=== PATIENT | male | born 1965 | race African-American/Black ===

== ENCOUNTER → 2023-06-27 | Emergency (ER) | payer SELFPAY ==
[~2023-06-27] MED LIST: COLCHICINE 0.6 MG TAB ONE; INDOMETHACIN 25 MG CAP PO ONE
--- NOTE | 2023-06-27 10:31 | ER ---
Nurse's Notes [facility] Name: John Brownlee Age: 58 yrs Sex: Male : 1965 Arrival Date: 06/27/2023 Time: 10:11 Bed 19 Private MD: Diagnosis: Gout right wrist Presentation: 06/26 10:23 Chief complaint: Patient states: right hand pain and swelling, hx of arthritis and gout iw , pain started yesterday. Coronavirus screen: At this time, the client does not indicate any symptoms associated with coronavirus-19. Ebola Screen: Patient negative for fever greater than or equal to 101.5 degrees Fahrenheit, and additional compatible Ebola Virus Disease symptoms Patient denies exposure to infectious person. Patient denies travel to an Ebola-affected area in the 21 days before illness onset. No symptoms or risks identified at this time. Initial Sepsis Screen: Does the patient meet any 2 criteria? No. Patient's initial sepsis screen is negative. Does the patient have a suspected source of infection? No. Patient's initial sepsis screen is negative. Risk Assessment: Do you want to hurt yourself or someone else? Patient reports no desire to harm self or others. Onset of symptoms was June 26, 2023. 10:23 Method Of Arrival: Ambulatory iw 10:23 Acuity: TERESO 3 iw Historical: - Allergies: 10:24 No Known Allergies; iw - Home Meds: 10:24 None [Active]; iw - PMHx: 10:24 Arthritis; Gout; iw - PSHx: 10:24 None; iw - Immunization history:: Adult Immunizations not up to date. - Social history:: Smoking status: Patient reports the use of cigarette tobacco products, smokes one-half pack cigarettes per day. Screenin:35 [facility] ED Fall Risk Assessment (Adult) History of falling in the last 3 months, cp4 including since admission No falls in past 3 months (0 pts). [facility] ED Fall Risk Assessment (Adult) History of falling in the last 3 months, including since admission No falls in past 3 months (0 pts) Confusion or Disorientation No (0 pts) Intoxicated or Sedated No (0 pts) Impaired Gait No (0 pts) Mobility Assist Device Used No (0 pt) Altered Elimination No (0 pt) Score/Fall Risk Level 0 - 2 = Low Risk Oriented to surroundings, Maintained a safe environment, Assessed \T\ reinforced patient's understanding of fall precautions, Hourly rounding (assess needs \T\ fall precautionary measures) done. Abuse screen: Denies threats or abuse. Nutritional screening: No deficits noted. Tuberculosis screening: No symptoms or risk factors identified. Assessment: 10:35 General: Appears in no apparent distress. Behavior is calm, cooperative, appropriate cp4 for age. Pain: Complains of pain in right hand. Musculoskeletal: No deficits noted. Reports pain in right hand. 11:11 Reassessment: Pending discharge. Waiting on medication from pharmacy. cp4 Vital Signs: 10:23 BP 170 / 104; Pulse 83; Resp 16; Temp 98.6; Pulse Ox 100% on R/A; Weight 111.13 kg; iw Height 5 ft. 10 in. ; Pain 10/10; 11:38 BP 164 / 99; Pulse 84; Resp 18; Pulse Ox 100% ; cp4 10:23 Body Mass Index 35.15 (111.13 kg, 177.8 cm) iw 10:23 Pain Scale: Adult iw ED Course: 10:13 Patient arrived in ED. rg4 10:17 Lauri Vogt DO is Attending Physician. ms3 10:24 Triage completed. iw 10:24 Arm band placed on. iw 10:30 Jerome Enriquez DO is Referral Physician. ms3 10:35 Sabina Marcelo is Primary Nurse. cp4 10:35 Bed in low position. Call light in reach. Side rails up X 1. Provided Education on: cp4 arthritis. 10:35 No provider procedures requiring assistance completed. Patient did not have IV access cp4 during this emergency room visit. Administered Medications: 11:12 Drug: colchicine 0.6 mg 1.2 mg PO once Route: PO; cp4 11:37 Follow up: Response: No adverse reaction cp4 11:37 Drug: Indomethacin PO 50 mg PO once Route: PO; cp4 11:37 Follow up: Response: No adverse reaction cp4 Medication: 10:35 VIS not applicable for this client. cp4 Outcome: 10:31 Discharge ordered by . ms3 11:38 Discharged to home ambulatory, cp4 11:38 Condition: stable 11:38 Discharge instructions given to patient, Instructed on discharge instructions, follow up and referral plans. medication usage, Demonstrated understanding of instructions, follow-up care, medications, Prescriptions given X 2, 11:39 Patient left the ED. cp4 Signatures: Cyndie Mullins RN RN Maribell Whitley rg4 Lauri Vogt DO DO ms3 Sabina Marcelo cp4
--- NOTE | 2023-06-27 10:31 | EDPHYS ---
Physician Documentation [facility] Name: John Brownlee Age: 58 yrs Sex: Male : 1965 Arrival Date: 06/27/2023 Time: 10:11 Bed 19 Private MD: ED Physician Lauri Vogt HPI: 06/26 10:33 This 58 yrs old Black Male presents to ER via Ambulatory with complaints of Hand ms3 Swelling, Hand Pain. 10:33 58-year-old male with past medical history of multijoint arthritis and gout presents to [facility] the emergency department for right wrist pain that began yesterday. Patient states he has had gout in his right wrist previously. Patient states pain is 10/10. Patient denies any alleviating or inciting factors. Patient states he is not currently on medication for gout.. Historical: - Allergies: 10:24 No Known Allergies; iw - Home Meds: 10:24 None [Active]; iw - PMHx: 10:24 Arthritis; Gout; iw - PSHx: 10:24 None; iw - Immunization history:: Adult Immunizations not up to date. - Social history:: Smoking status: Patient reports the use of cigarette tobacco products, smokes one-half pack cigarettes per day. ROS: 10:33 Constitutional: Negative for fever, and chills. Neck: Negative for injury, pain, and ms3 swelling, Cardiovascular: Negative for chest pain, and palpitations. Respiratory: Negative for shortness of breath, cough, wheezing, and pleuritic chest pain, Abdomen/GI: Negative for abdominal pain, nausea, vomiting, diarrhea, and constipation, 10:33 MS/extremity: Positive for Right wrist redness, pain, swelling, Exam: 10:33 Constitutional: This is a well developed, well nourished patient who is awake, alert, ms3 and in no acute distress. Head/Face: Normocephalic, atraumatic. Chest/axilla: Normal chest wall appearance and motion. Nontender with no deformity. Cardiovascular: Regular rate and rhythm with a normal S1 and S2. No gallops, murmurs, or rubs. Normal PMI, no JVD. No pulse deficits. Respiratory: Lungs have equal breath sounds bilaterally, clear to auscultation and percussion. No rales, rhonchi or wheezes noted. No increased work of breathing, no retractions or nasal flaring. Abdomen/GI: Soft, non-tender, with normal bowel sounds. No distension or tympany. No guarding or rebound. No evidence of tenderness throughout. 10:33 Musculoskeletal/extremity: Extremities: noted in the Right wrist: pain, swelling, tenderness, Vital Signs: 10:23 BP 170 / 104; Pulse 83; Resp 16; Temp 98.6; Pulse Ox 100% on R/A; Weight 111.13 kg; iw Height 5 ft. 10 in. ; Pain 10/10; 11:38 BP 164 / 99; Pulse 84; Resp 18; Pulse Ox 100% ; cp4 10:23 Body Mass Index 35.15 (111.13 kg, 177.8 cm) iw 10:23 Pain Scale: Adult iw MDM: 10:29 Patient medically screened. ms3 10:33 Differential diagnosis: Gout versus arthritis. Data reviewed: vital signs, nurses ms3 notes, and as a result, I will discharge patient. I considered the following discharge prescriptions or medication management in the emergency department Medications were administered in the Emergency Department. See MAR. Care significantly affected by the following chronic conditions: Gout. Counseling: I had a detailed discussion with the patient and/or guardian regarding the historical points, exam findings, and any diagnostic results supporting the discharge/admit diagnosis, the need for outpatient follow up, to return to the emergency department if symptoms worsen or persist or if there are any questions or concerns that arise at home. Special discussion: I discussed with the patient/guardian in detail that at this point there is no indication for admission to the hospital. It is understood, however, that if the symptoms persist or worsen the patient needs to return immediately for re-evaluation. ED course: Patient states symptoms are similar to previous gout flare in right wrist. Patient given colchicine and indomethacin in the emergency department. Patient to follow-up with Dr. Enriquez in 2 to 3 days. Patient understands and agrees with plan. All questions were answered. Prescription given for indomethacin and colchicine. Return precautions discussed include fevers, chills, worsening symptoms, or any other concerns. 06/26 10:42 Order name: Wrist Splint; Complete Time: 11:12 ms3 Administered Medications: 11:12 Drug: colchicine 0.6 mg 1.2 mg PO once Route: PO; cp4 11:37 Follow up: Response: No adverse reaction cp4 11:37 Drug: Indomethacin PO 50 mg PO once Route: PO; cp4 11:37 Follow up: Response: No adverse reaction cp4 Disposition Summary: 06/27/23 10:31 Discharge Ordered Notes: Location: Home ms3 Condition: Stable ms3 Diagnosis - Gout right wrist ms3 Followup: ms3 - With: Jerome Enriquez DO - When: 2 - 3 days - Reason: Recheck today's complaints Discharge Instructions: - Discharge Summary Sheet ms3 - Gout, [id number] ms3 Forms: - Medication Reconciliation Form ms3 - Thank You Letter ms3 - Antibiotic Education ms3 - Prescription Opioid Use ms3 - Patient Portal Instructions ms3 - Leadership Thank You Letter ms3 Prescriptions: - colchicine 0.6 mg Oral tablet - take 1 tablet ORAL route daily; 20 tablet; Refills: 0, Product Selection ms3 Permitted - indomethacin 50 mg Oral capsule - take 1 capsule ORAL route 4 times per day administer with food or milk; 20 ms3 capsule; Refills: 0, Product Selection Permitted Signatures: Cyndie Mullins RN RN iw Lauri Vogt DO DO ms3 Sabina Marcelo cp4
[2023-06-27 12:05] VITALS: BP 164/99; TEMP 98.6; O2SAT 100
== END ==
LOC: ER 10:11
DX: M10.9 Gout, unspecified (principal)
CPT/HCPCS: 99283

== ENCOUNTER 2025-01-25 11:11 | Emergency (ER) | payer OTHER, SELFPAY ==
--- OUTSIDE RECORDS SUMMARY | 2025-01-25 11:15 | XMS REPORT | Continuity of Care Document ---
Author Name Unknown Address [address] [facility] [address] [place] [address] [facility] Address [address] [facility] [address] [place] [address] Care Team Providers Care Lining Inserter Name Role Phone Pcp, Patient Does Not Have A Primary Care Physic jah Doctor Unassigned, [place] Attending Clinician U CLAYTON Scott Attending Clinician Unavailable Clayton Godinez MD Attending Clinician [phone] CAROLINE RUTHERFORD Attending Clinician Unavailable Caroline Watkins Attending Clinician [phone] MANJU FINNEY Attending Clinician Unavailable Manju Finney NP Attending Clinician [phone] Rebecca Mo Attending Clinician [phone] Kim Aiken Attending Clinician [phone] MANJU FINNEY Admitting Clinician Unavailable Payers Payer Name Policy Type Policy Number Effective Date Expirati on Date Source Problems Condition Name Condition Details Condition Category Status Onset Date Resolution Date Last Treatment Date Treating Clinician Comments Source Chest pain Chest pain Disease Active 01-04:00: 00 [facility] No known active problems No known active problems Disease [facility] Allergies, Adverse Reactions, Alerts Allergy Name Allergy Type Status Severity Reaction(s) Onset Date Inactive Date Treating Clinician Comments Source NO KNOWN ALLERGIE S Drug Class Active [facility] Social History Social Habit Start Date Stop Date Quantity Comments Source Exposure to SARS-CoV-2 (event) 2022-03-26 00:00:00 2022-04-05 13:37:00 Not sure [facility] Sex Assigned At 1965 00:00:00 1965 00:00:00 [facility] Smoking Status Start Date Stop Date Source Tobacco smoking consumption unknown [facility] Medications Ordered Medication Name Filled Medication Name Start Date Stop Date Current Medication? Ordering Clinician Indication Dosage Frequency Signature (SIG) Comments Components Source ketorolac (TORADOL) injection 30 mg 2021-04 21:15: 00 04-05 20:47 :00 No 30mg 30 mg, Intramuscu lar, ONCE, 1 dose, On Tue04/05/22 at 1515, MALIA [facility] predniSONE 20 mg tablet 2021-04 00:00: 00 Yes [id number] 60mg Take 3 tablets by mouth in the morning. [facility] colchicine 0.6 mg tablet 2021-04 00:00: 00 Yes [id number] .6mg Take 1 tablet by mouth in the morning. [facility] traMADoL 50 mg tablet 2021-04 00:00: 00 Yes [id number] 50mg Take 1 tablet by mouth every 6 (six) hours as needed for Pain (scale 4-6). Indication s: acute pain [facility] methocarbam oL (ROBAXIN) tablet 500 mg 2021-04 15:45: 00 03-01 14:59 :00 No 500mg 500 mg, Oral, ONCE, 1 dose, On Tue03/01/22 at 0945, Routine [facility] ketorolac (TORADOL) injection 30 mg 2021-04 15:00: 00 03-01 14:59 :00 No 30mg 30 mg, Intramuscu lar, ONCE, 1 dose, On 03/01/22 at 0900, MALIA [facility] cyclobenzap rine 10 mg tablet 2021-04 00:00: 00 Yes [id number] 10mg Take 1 tablet by mouth 3 (three) times daily as needed for Muscle Spasms. [facility] cyclobenzap rine (FLEXERIL) tablet 10 mg 2021-04 15:30: 00 02-20 14:36 :00 No 10mg 10 mg, Oral, ONCE, 1 dose, On 02/20/22 at 0930, Routine [facility] ibuprofen (IBU) tablet 800 mg 2021-04 14:45: 00 02-20 14:36 :00 No 800mg 800 mg, Oral, ONCE, 1 dose, On 02/20/22 at 0845, MALIA [facility] ibuprofen 800 mg tablet 2021-04 00:00: 00 Yes [id number] 800mg Take 1 tablet by mouth every 8 (eight) hours as needed for Pain (scale 1-3), Pain (scale 4-6) or Alternate with [place] for pain scale 1-3. [facility] cyclobenzap rine 10 mg tablet 2021-04 00:00: 00 03-01 00:00 :00 No [id number] 10mg Take 1 tablet by mouth 3 (three) times daily as needed for Muscle Spasms. [facility] nitroglycer in (NITROSTAT) sublingual tablet 0.4 mg 01-05 01:12: 34 Yes .4mg 0.4 mg, Sublingual , Q5MIN PRN, Starting 01/05/20 at 2011, Until Discontinu ed, Routine, Chest pain [facility] ketorolac (TORADOL) injection 60 mg 10-31 17:00: 00 10-31 16:24 :00 No 60mg 60 mg, Intramuscu lar, ONCE, 1 dose, Guillermina 11/01/19 at 1200, MALIA
Fa culty member approving Restricted medication : KIM CANTU [facility] naproxen (NAPROSYN) 500 mg tablet 10-31 00:00: 02-20 00:00 :00 No [id number] 500mg Take 1 tablet by mouth 2 (two) times daily with meals. [facility] metaxalone (SKELAXIN) 800 mg tablet 10-31 00:00: 00 02-20 00:00 :00 No [id number] 800mg Take 1 tablet by mouth 3 (three) times daily as needed for Pain (muscle spasm). [facility] methylPREDN ISolone (MEDROL, NELLY,) 4 mg tablets 09-14 00:00: 00 02-20 00:00 :00 No [id number] Take by mouth SEE-INSTRU CTIONS. follow package directions [facility] naproxen sodium (ANAPROX DS) 550 mg tablet 09-14 00:00: 10-31 00:00 :00 No [id number] 550mg Take 1 tablet by mouth 2 (two) times daily with meals. [facility] predniSONE (DELTASONE) 20 mg tablet 12-08 00:00: 02-20 00:00 :00 No Take 3 tablets po QD x2 days, then 2 QD x 2 days, then 1 QD x 2 days, then 1/2 QD x 2 days [facility] Hydrocortis one (ALA-SCALP) 2 % Lotn 12-07 00:00: 00 02-20 00:00 :00 No Apply to area(s) 2 (two) times daily as needed for Itching. [facility] Vital Signs Vital Name Observation Time Observation Value Comments S michelle Systolic blood pressure 2022-04-05 19:38:00 143 mm[Hg] [facility] Diastolic blood pressure 2022-04-05 19:38:00 102 mm[Hg] [facility] Heart rate 2022-04-05 19:38:00 70 /min [facility] Body temperature 2022-04-05 19:38:00 36.83 Sarah [facility] Respiratory rate 2022-04-05 19:38:00 20 /min [facility] Body height 2022-04-05 19:38:00 172.7 cm [facility] Body weight 2022-04-05 19:38:00 108.863 kg [facility] BMI 2022-04-05 19:38:00 36.49 kg/m2 [facility] Oxygen saturation in Arterial blood by Pulse oximetry 2022-04-05 19:38:00 99 /min [facility] Systolic blood pressure 2022-03-01 14:27:00 149 mm[Hg] [facility] Diastolic blood pressure 2022-03-01 14:27:00 101 mm[Hg] [facility] Heart rate 2022-03-01 14:27:00 89 /min [facility] Body temperature 2022-03-01 14:27:00 37.44 Sarah [facility] Respiratory rate 2022-03-01 14:27:00 20 /min [facility] Body weight 2022-03-01 14:27:00 113.399 kg [facility] BMI 2022-03-01 14:27:00 35.87 kg/m2 [facility] Oxygen saturation in Arterial blood by Pulse oximetry 2022-03-01 14:27:00 100 /min [facility] Systolic blood pressure 2022-02-20 14:03:00 146 mm[Hg] [facility] Diastolic blood pressure 2022-02-20 14:03:00 95 mm[Hg] [facility] Heart rate 2022-02-20 14:03:00 80 /min [facility] Body temperature 2022-02-20 14:03:00 36.61 Sarah [facility] Respiratory rate 2022-02-20 14:03:00 16 /min [facility] Body height 2022-02-20 14:03:00 177.8 cm [facility] Body weight 2022-02-20 14:03:00 113.399 kg [facility] BMI 2022-02-20 14:03:00 35.87 kg/m2 [facility] Oxygen saturation in Arterial blood by Pulse oximetry 2022-02-20 14:03:00 99 /min [facility] Systolic blood pressure 2020-01-06 01:35:00 140 mm[Hg] [facility] Diastolic blood pressure 2020-01-06 01:35:00 91 mm[Hg] [facility] Heart rate 2020-01-06 01:35:00 72 /min [facility] Respiratory rate 2020-01-06 01:35:00 16 /min [facility] Oxygen saturation in Arterial blood by Pulse oximetry 2020-01-06 01:35:00 99 /min [facility] Body temperature 2020-01-05 23:23:00 37.44 Sarah [facility] Body height 2020-01-05 23:23:00 177.8 cm [facility] Body weight 2020-01-05 23:23:00 97.523 kg [facility] BMI 2020-01-05 23:23:00 30.85 kg/m2 [facility] Systolic blood pressure 2019-11-01 16:00:00 146 mm[Hg] [facility] Diastolic blood pressure 2019-11-01 16:00:00 102 mm[Hg] [facility] Heart rate 2019-11-01 16:00:00 67 /min [facility] Respiratory rate 2019-11-01 16:00:00 19 /min [facility] Oxygen saturation in Arterial blood by Pulse oximetry 2019-11-01 16:00:00 99 /min [facility] Body temperature 2019-11-01 15:37:00 37 Sarah [facility] Body weight 2019-11-01 15:37:00 99.791 kg [facility] BMI 2019-11-01 15:37:00 31.57 kg/m2 [facility] Procedures Procedure Date / Time Performed Performing Clinician Source AUTHORIZATION FOR RELEASE OF PHI 2022-06-14 06:01:00 Doctor Unassigned, [place] [facility] CONSENT/REFUSAL FOR DIAGNOSIS AND TREATMENT 2022-04-05 20:30:01 Doctor Unassigned, [place] [facility] CONSENT/REFUSAL FOR DIAGNOSIS AND TREATMENT 2022-03-01 14:19:42 Doctor Unassigned, [place] [facility] XR LUMBAR SPINE 3 VW 2022-02-20 14:48:57 Cayetano Finney [facility] XR CERVICAL SPINE 3 VW 2022-02-20 14:48:57 Jessica Finney ala [facility] NOTICE OF PRIVACY PRACTICES 2022-02-20 13:56:56 Doctor Unassigned, [place] [facility] CONSENT/REFUSAL FOR DIAGNOSIS AND TREATMENT 2022-02-20 13:56:30 Doctor Unassigned, [place] [facility] XR CHEST 1 VW 2020-01-06 00:07:26 Rebecca Perkins [facility] TROPONIN I 2020-01-05 23:57:00 Rebecca Perkins [facility] HEPATIC FUNCTION PANEL ([id number]) (ALB,T.PRO,BILI T,BU/BC,ALT,AST,ALK PHOS) 2020-01-05 23:57:00 Rebecca Perkins [facility] BASIC METABOLIC PANEL (NA, K, CL, CO2, GLUCOSE, BUN, CREATININE, CA) 2020-01-05 23:57:00 Rebecca Perkins [facility] LIPID PANEL ([id number])(TOTAL CHOLESTEROL, TRIGLYCERIDES, HDL) 2020-01-05 23:57:00 Jesu Phan [facility] CBC WITH DIFF 2020-01-05 23:57:00 Rebecca Perkins [facility] EKG-12 LEAD 2020-01-05 23:32:38 Rebecca Perkins [facility] CONSENT/REFUSAL FOR DIAGNOSIS AND TREATMENT 2020-01-05 23:17:54 Doctor Unassigned, [place] [facility] NOTICE OF PRIVACY PRACTICES 2019-11-01 15:19:25 Doctor Unassigned, [place] [facility] CONSENT/REFUSAL FOR DIAGNOSIS AND TREATMENT 2019-11-01 15:16:37 Doctor Unassigned, [place] [facility] Encounters Start Date/Time End Date/Time Encounter Type Admission Type Attending [facility] Care Facility Care Department Encounter ID Source 2024-09-19 11:56:00 2024-09-19 11:56:00 Outpatient S[facility] [id number] [id number] Ryan Sorensen 2022-06-14 00:00:00 2022-06-14 00:00:00 Orders Only Doctor Unassigned, [place] [facility] 1.2.114 350.1.13.10 4.2.7.2.686 [id number] [facility] 2022-04-05 13:48:00 2022-04-05 14:56:00 Emergency X ANA GODINEZNELL [facility] ERT [id number] [facility] 2022-04-05 13:48:00 2022-04-05 14:56:00 Emergency GodinezClayton [facility] 1..114 350.1.13.10 4.2.7.2.686 [id number] [facility] 2022-03-01 08:27:00 2022-03-01 09:19:00 Emergency X CAROILNE RUTHERFORD [facility] ERT [id number] [facility] 2022-03-01 08:27:00 2022-03-01 09:19:00 Emergency Caroline Rutherford [facility] 1..114 350.1.13.10 4.2.7.2.686 [id number] [facility] 2022-02-20 08:05:00 2022-02-20 09:33:00 Emergency X MANJU FINNEY [facility] ERT [id number] [facility] 2022-02-20 08:05:00 2022-02-20 09:33:00 Emergency Manju Finney [facility] 1..114 350.1.13.10 4.2.7.2.686 [id number] [facility] 2020-01-05 18:36:00 2020-01-05 20:37:00 Emergency Rebecca Perkins [facility] 1..114 350.1.13.10 4.2.7.2.686 [id number] [facility] 2020-01-05 18:18:00 2020-01-05 18:18:00 Emergency X [facility] ERT [id number] [facility] 2019-11-01 10:30:37 2019-11-01 11:46:00 Emergency Kim Cantu [facility] [id number] 350.1.13.10 4.2.7.2.686 [id number] [facility] 2019-11-01 10:17:00 2019-11-01 10:17:00 Emergency X [facility] ERT [id number] [facility] 2019-11-01 00:00:00 2019-11-01 00:00:00 Orders Only Doctor Unassigned, [place] [facility] [id number] 350.1.13.10 4.2.7.2.686 [id number] [facility] Results Test Description Test Time Test Comments Results Result Co mments Source [facility] [id number] 00:36:00* Test Item Value Reference Range Interpretation Comme nts TROPONIN I (test code = 1179548915) 0.006 ng/mL See_Comment [Automated message] The system which generated this result transmitted reference range: <=0.034. The reference range was not used to interpret this result as normal/abnormal. CHUY (test code = CHUY) Equal or Less than 0.034 ng/ml---Normal ?Note: Cardiac troponin begins to rise 3-4 hours after the onset of ischemia. Repeat in 4-6 hours if the sample was drawn within 3-4 hours of the onset of the symptom and found normal. Between 0.035 and 0.120 ng/mL--- Borderline. Questionable myocardial injury or necrosis ? ?Note: Serial measurement may be necessary to confirm or exclude the diagnosis of myocardial injury or necrosis; Clinical correlation (symptoms, EKGs, imaging studies, and others) required; Repeat in 4-6 hours if clinically indicated. ? Equal or Higher than 0.121 ng/mL---Abnormal. Myocardial Injury or Necrosis Likely ? Biotin has been reported to cause a negative bias, interpret results relative to patient's use of biotin. ? Lab Interpretation (test code = 38295-3) Normal [facility] 1 [id number] 00:29:16No acute cardiopulmonary process. Preliminary Report Dictated by Resident: Placido Bangura MD., have reviewed this study and agree with theabove report.EXAM: XR CHEST 1 VW COMPARISON: None. HISTORY: arm numbness ? TECHNIQUE: Frontal view of the chest was obtained. FINDINGS: Lungs/pleura: ?The lungs are clear. No focal consolidation identified. Nopleural effusion or pneumothorax is identified. Heart/Mediastinum: The cardiac silhouette is normal in size. No acute osseous abnormality. [facility], Radiant Results Inft User - 01/05/2020 7:30 PM CDTEXAM: XR CHEST 1 VWCOMPARISON: None.HISTORY: arm numbness TECHNIQUE: Frontal view of the chest was obtained.FINDINGS:Lungs/pleura: The lungs are clear. No focal consolidation identified. Nopleural effusion or pneumothorax is identified.Heart/Mediastinum: The cardiac silhouette is normal in size.No acute osseous abnormality.IMPRESSIONNo acute cardiopulmonary process.Preliminary Report Dictated by Resident: Placido Louis MD., have reviewed this study and agree with theabove report.[facility] Basic Metabolic Panel (NA, K, CL, CO2, GLUCOSE, BUN, CREATININE, CA)2020-01-06 00:25:00* Test Item Value Reference Range Interpretation Comme nts NA (test code = 4008768946) 137 mmol/L 135-145 K (test code = 1941171647) 4.1 mmol/L 3.5-5 CL (test code = 7573169270) 103 mmol/L 98-108 CO2 TOTAL (test code = 6089003478) 26 mmol/L 23-31 AGAP (test code = 5138824086) 2-16 BUN (test code = 8107945123) 17 mg/dL 7-23 GLUCOSE (test code = 4674891412) 104 mg/dL 70-110 CREATININE (test code = 9832703514) 1.10 mg/dL 0.6-1.25 CALCIUM (test code = 0341366223) 9.3 mg/dL 8.6-10.6 eGFR Calculation (Non-) (test code = 3475596326) mL/min/1.73m2 eGFR Calculation () (test code = 4258051426) mL/min/1.73m2 CHUY (test code = CHUY) Association of Glomerular Filtration Rate (GFR) and Staging of Kidney Disease* + -+ + ---+| GFR (mL/min/1.73 m2) ?| With Kidney Damage ?| ?Without Kidney Damage+ -------+ ------+ ---------+| ?>90 ?| ?Stage one ?| ? Normal ?+ --+ -+ ----+| ?60-89 ?| ?Stage two ?| ? Decreased GFR ? + -+ + ---+| ?30-59 ?| ?Stage three ?| ? Stage three ? + -+ + ---+| ?15-29 ?| ?Stage four ? | ? Stage four ?+ --+ -+ ----+| ?<15 (or dialysis) ? ?| ?Stage five ? | ? Stage five ?+ --+ -+ ----+ *Each stage assumes the associated GFR level has been in effect for at least three months. ?Stages 1 to 5, with or without kidney disease, indicate chronic kidney disease. Notes: Determination of stages one and two (with eGFR >59mL/min/1.73 m2) requires estimation of kidney damage for at least three months as defined by structural or functional abnormalities of the kidney, manifested by either:Pathological abnormalities or Markers of kidney damage (including abnormalities in the composition of the blood or urine or abnormalities in imaging tests). [facility] (ALB, T.PRO, BILI T, BU/BC, ALT, AST, ALK PHOS)2020-01-06 00:25:00* Test Item Value Reference Range Interpretation Comme nts TOTAL BILI (test code = 3240679404) 0.4 mg/dL 0.1-1.1 BILI UNCON (test code = 3732872792) 0.5 mg/dL 0.1-1.1 BILI CONJ (test code = 2547811551) 0.0 mg/dL 0-0.3 T PROTEIN (test code = 8580056295) 7.2 g/dL 6.3-8.2 ALBUMIN (test code = 9689893449) 3.9 g/dL 3.5-5 ALK PHOS (test code = 2385930938) 64 U/L 34-122 ALTv (test code = 1742-6) 22 U/L 5-50 AST(SGOT) (test code = 9589295241) 32 U/L 13-40 Lab Interpretation (test cod e = 07097-0) Normal [facility] with [id number] 00:04:00* Test Item Value Reference Range Interpretation Comme nts WBC (test code = 6690-2) See_Comment [Automated Glofoxa ge] The system which generated this result transmitted reference range: 4.20 - 10.70 10*3/?L. The reference range was not used to interpret this result as normal/abnormal. RBC (test code = 789-8) See_Comment [Automated Glofoxa ge] The system which generated this result transmitted reference range: 4.26 - 5.52 10*6/?L. The reference range was not used to interpret this result as normal/abnormal. HGB (test code = 718-7) 14.0 g/dL 12.2-16.4 HCT (test code = 4544-3) 41.3 % 38.4-49.3 MCV (test code = 787-2) 90.0 fL 81.7-95.6 MCH (test code = 785-6) 30.5 pg 26.1-32.7 MCHC (test code = 786-4) 33.9 g/dL 31.2-35 RDW-SD (test code = 78929-2) 41.7 fL 38.5-51.6 RDW-CV (test code = 788-0) 12.6 % 12.1-15.4 PLT (test code = 777-3) See_Comment [Automated Glofoxa ge] The system which generated this result transmitted reference range: 150 - 328 10*3/?L. The reference range was not used to interpret this result as normal/abnormal. MPV (test code = 89704-6) 9.3 fL 9.8-13 L NRBC/100 WBC (test code = 9756618168) See_Comment [Automated me ssage] The system which generated this result transmitted reference range: 0.0 - 10.0 /100 WBCs. The reference range was not used to interpret this result as normal/abnormal. NRBC x10^3 (test code = 5326783255) <0.01 See_Comment [Automated messa ge] The system which generated this result transmitted reference range: 10*3/?L. The reference range was not used to interpret this result as normal/abnormal. GRAN MAT (NEUT) % (test code = 770-8) 71.6 % IMM GRAN % (test code = 3548916202) 0.40 % LYMPH % (test code = 736-9) 15.6 % MONO % (test code = 5905-5) 8.7 % EOS % (test code = 713-8) 3.1 % BASO % (test code = 706-2) 0.6 % GRAN MAT x10^3(ANC) (test code = 7929705054) 5.70 10*3/uL 1.99-6.95 IMM GRAN x10^3 (test code = 3245608441) 0.03 10*3/uL 0-0.06 LYMPH x10^3 (test code = 731-0) 1.24 10*3/uL 1.09-3.23 MONO x10^3 (test code = 742-7) 0.69 10*3/uL 0.36-1.02 EOS x10^3 (test code = 711-2) 0.25 10*3/uL 0.06-0.53 BASO x10^3 (test code = 704-7) 0.05 10*3/uL 0.01-0.09 Lab Interpretation (test code = 93258-7) Abnormal [facility]"
[2025-01-25] MEDS ORDERED: NA CHLORIDE 0.9% 1,000 ML ONE (11:33)
[2025-01-25 11:55] LABS: Absolute Lymphocytes (CBC) 1.4 K/uL (0.7-4.9); Hematocrit 42.4 % (39.6-49.0); Hemoglobin 14.2 g/dL (13.6-17.9); MCH 30.8 pg (27.0-35.0); MCHC 33.5 g/dL (32.0-36.0); MCV 91.8 fL (80-100); MPV 8.0 fL (7.6-11.3); Nucleated RBC Absolute Count 0.0 (0-0); Nucleated Red Blood Cells % 0.0 % (0-0); RBC Red Blood Cell Count 4.61 M/uL (4.33-5.43); White Blood Count 10.30 thou/uL (4.3-10.9)
[2025-01-25 12:01] LABS: PT Prothrombin Time 12.0 SECONDS (10-13.0); Protime INR 1.06
--- NOTE | 2025-01-25 12:22 | RAD REPORT ---
Procedure: Chest Single View HISTORY: Shortness of breath COMPARISON: 2009 FINDINGS: The lungs appear clear of acute infiltrate. No significant pleural effusion noted. The heart is normal size. IMPRESSION: No acute abnormality is displayed.
[2025-01-25 12:31] LABS: Potassium 4.1 mEq/L (3.5-5.1)
[2025-01-25 12:32] LABS: Anion Gap 9.0 mEq/L (5.0-15.0); BUN Blood Urea Nitrogen 11.0 mg/dL (7-18); Glucose Level 143.0 mg/dL (74-106)
[2025-01-25 12:33] LABS: NT PRO-BNP 47.0 pg/mL (<125); Troponin High Sensitivity 6.2 (<58.9)
--- NOTE | 2025-01-25 13:42 | RAD REPORT ---
EXAM: CT Chest For Pe Angio TECHNIQUE: CT angiogram of the chest was performed following intravenous contrast administration, inc luding sagittal and coronal as well as maximum intensity projection reformats. One or more of the following dose reduction techniques were used: Automated exposure control, adjustment of the mA and k V according to patient size, and iterative reconstruction. Unless otherwise specified, incidental findings do not require dedicated imaging follow-up. INDICATION: [facility] MAIN Chest pain;SOB Bed Name: 6 N COMPARISON: 11/21/2008 CT chest. FINDINGS: LINES/TUBES: None. PULMONARY ARTERIES: Main pulmonary arteries are normal in caliber. No filling defects within the pul monary arteries to suggest pulmonary embolus, although motion artifact particularly at the right lung base limits evaluation. LUNGS AND AIRWAYS: The lungs and central airways are normal without focal abnormality. Stable left pe rifissural 5 mm nodule on axial image 72. PLEURA: No effusion or pneumothorax. HEART AND MEDIASTINUM: The visualized thyroid gland is normal. Mildly prominent right hilar lymph nod e measuring 1.3 cm in short axis. No other mediastinal, hilar, or axillary lymphadenopathy. Heart is unremarkable. No pericardial effusion. SOFT TISSUES AND BONES: No acute osseous abnormality. No significant soft tissue finding. UPPER ABDOMEN: Unremarkable. IMPRESSION: No evidence of acute central pulmonary emboli allowing for limitations mentioned above. Mildly prominent right hilar lymph node, likely reactive. Other stable findings as above.
--- NOTE | 2025-01-25 14:20 | EDPHYS ---
Physician Documentation [facility] Name: John Brownlee Age: 59 yrs Sex: Male : 1965 Arrival Date: 01/25/2025 Time: 11:11 Bed 6 Private MD: ED Physician Campbell Boo HPI: 01/25 17:54 This 59 yrs old Black Male presents to ER via EMS with complaints of Shortness Of dr5 Breath. 17:54 The patient has shortness of breath with light activity. Onset: The symptoms/episode dr5 began/occurred acutely. Patient is a 59-year-old male with history of arthritis and gout coming in with shortness of breath that worsens when he is ambulating. Patient reports that he feels like he is not able to get a full breath and and thinks it is possibly because he does not take deep enough breaths. Patient denies chest pain, abdominal pain, nausea, vomiting, diarrhea.. Historical: - Allergies: 11:19 No Known Allergies; ar8 - Home Meds: 11:19 None [Active]; ar8 - PMHx: 11:19 Arthritis; Gout; ar8 - PSHx: 11:19 None; ar8 - Immunization history:: Adult Immunizations up to date. - Infectious Disease History:: Denies. - Social history:: Smoking status: Patient reports the use of cigarette tobacco products, smokes one-half pack cigarettes per day. ROS: 17:54 Constitutional: as per hpi dr5 Exam: 17:54 Constitutional: This is a well developed, well nourished patient who is awake, alert, dr5 and in no acute distress. Head/Face: Normocephalic, atraumatic. Eyes: Pupils equal round and reactive to light, extra-ocular motions intact. Lids and lashes normal. Conjunctiva and sclera are non-icteric and not injected. Cornea within normal limits. Periorbital areas with no swelling, redness, or edema. Neck: Trachea midline, no thyromegaly or masses palpated, and no cervical lymphadenopathy. Supple, full range of motion without nuchal rigidity, or vertebral point tenderness. No Meningismus. Chest/axilla: Normal chest wall appearance and motion. Nontender with no deformity. No lesions are appreciated. Cardiovascular: Regular rate and rhythm with a normal S1 and S2. Normal PMI, no JVD. No pulse deficits. Respiratory: Lungs have equal breath sounds bilaterally, clear to auscultation. No rales, rhonchi or wheezes noted. No increased work of breathing, no retractions or nasal flaring. Back: No spinal tenderness. No costovertebral tenderness. Full range of motion. Skin: Warm, dry with normal turgor. Normal color with no rashes, no lesions, and no evidence of cellulitis. MS/ Extremity: Pulses equal, no cyanosis. Neurovascular intact. Full, normal range of motion. Neuro: Awake and alert, GCS 15, oriented to person, place, time, and situation. Cranial nerves II-XII grossly intact. Motor strength 5/5 in all extremities. Sensory grossly intact. Cerebellar exam normal. Normal gait. Vital Signs: 11:17 BP 133 / 85; Pulse 59; Resp 17 S; Temp 98.3(O); Pulse Ox 99% on R/A; Weight 95.25 kg; ar8 Height 5 ft. 10 in. ; Pain 0/10; 11:45 BP 137 / 93; Pulse 65; Resp 18; Pulse Ox 97% on R/A; ar8 12:15 BP 144 / 96; Pulse 63; Resp 17; Pulse Ox 97% ; me1 13:00 BP 147 / 88; Pulse 62; Resp 16; Pulse Ox 95% ; me1 14:00 BP 139 / 87; Pulse 59; Resp 12; Temp 98.3; Pulse Ox 95% ; me1 11:17 Body Mass Index 30.13 (95.25 kg, 177.8 cm) ar8 11:17 Pain Scale: Adult ar8 MDM: 11:20 Medical Screening Exam initiated dr5 17:54 Differential diagnosis: Anemia asthma, Bronchitis pulmonary edema, Pulmonary Embolism dr5 New onset congestive heart failure, COPD, pneumonia. Antibiotic administration: Not indicated, the patient does not have an appreciated infiltrate. Data reviewed: vital signs, nurses notes, lab test result(s), cardiac enzymes, troponin i, CBC, white blood cell count, hemoglobin, hematocrit, platelets, electrolytes, sodium, potassium, chloride, serum bicarbonate, BUN, creatinine, serum glucose, CK, BNP, EKG, radiologic studies, CT scan, plain films. Consideration of Admission/Observation Escalation of care including admission/observation considered. Discussion considered patient found to have PE or other abnormality on blood work or chest x-ray. I considered the following discharge prescriptions or medication management in the emergency department I discussed and recommended Over The Counter medications, Medications were administered in the Emergency Department. See MAR. Independent interpretation of the following test(s) in the Emergency Department X-Ray: My interpretation is Independent interpretation of chest x-ray does not reveal pneumonia. Care significantly affected by the following chronic conditions: Gout, arthritis. Care significantly affected by the following Social Determinants of Health: Poor access to healthcare and/or lack of insurance, Poor access to transportation, Problems related to employment. Counseling: I had a detailed discussion with the patient and/or guardian regarding the historical points, exam findings, and any diagnostic results supporting the discharge/admit diagnosis, the presence of at least one elevated blood pressure reading (>120/80) during this emergency department visit, lab results, radiology results, the need for outpatient follow up, for definitive care, a family practitioner, to return to the emergency department if symptoms worsen or persist or if there are any questions or concerns that arise at home. Medication response: NS. Response to treatment: the patient's symptoms have resolved after treatment, the patient is now symptom free. Special discussion: I discussed with the patient/guardian in detail that at this point there is no indication for admission to the hospital. It is understood, however, that if the symptoms persist or worsen the patient needs to return immediately for re-evaluation. Based on the history and exam findings, there is no indication for further emergent testing or inpatient evaluation. I discussed with the patient/guardian the need to see the primary care provider for further evaluation of the symptoms. ED course: Patient reports her symptoms are improved. No PE noted on CT scan. No abnormalities noted on chest x-ray. All labs and diagnostics were negative, printed and given to patient to follow-up with.. Patient reports he feels much better. All questions answered. Strict ER precautions given.. 01/25 11: Order name: Basic Metabolic Panel; Complete Time: 12:37 dr5 01/25 11: Order name: CBC with Diff; Complete Time: 12:16 dr5 01/25 11:28 Order name: NT PRO-BNP; Complete Time: 12:37 dr5 01/25 11:28 Order name: PT-INR; Complete Time: 12:16 dr5 01/25 11:28 Order name: Troponin HS; Complete Time: 12:37 dr5 01/25 11:28 Order name: CK; Complete Time: 12:37 dr5 01/25 11:28 Order name: XRAY Chest (1 view); Complete Time: 12:23 dr5 01/25 12:37 Order name: CT Chest For PE Angio; Complete Time: 14:04 dr5 01/25 11:28 Order name: Cardiac monitoring; Complete Time: 11:40 dr5 01/25 11:28 Order name: EKG - Nurse/Tech; Complete Time: 11:40 dr5 01/25 11:28 Order name: IV Saline Lock; Complete Time: 11:41 dr5 01/25 11:28 Order name: Labs collected and sent; Complete Time: 11:47 dr5 01/25 11:28 Order name: O2 Per Protocol; Complete Time: 11:40 dr5 01/25 11:28 Order name: O2 Sat Monitoring; Complete Time: 11:40 dr5 EC:38 Rate is 62 beats/min. Rhythm is regular. QRS [place] is Normal. VA interval is normal at dr5 112 msec. QRS interval is normal at 96 msec. QT interval is normal at 420 msec. Clinical impression: Normal ECG and No evidence of ischemia. Administered Medications: 11:47 Drug: NS 0.9% IV 1000 ml IV at 1000 ml once; to be given as a bolus over 60 minutes ar8 Route: IV; Rate: 1000 ml; Site: left antecubital; 14:27 Follow up: Response: No adverse reaction; IV Status: Completed infusion me1 Disposition: 01/26 07:54 Co-signature as Attending Physician, Campbell Boo MD I agree with the assessment and diony plan of care. Disposition Summary: 01/25/25 14:20 Discharge Ordered Notes: Location: Home dr5 Condition: Stable dr5 Diagnosis - Shortness of breath dr5 Followup: dr5 - With: Emergency Department - When: As needed - Reason: Worsening of condition Followup: dr5 - With: Private Physician - When: 1 - 2 days - Reason: Recheck today's complaints, Continuance of care, Re-evaluation by your physician Discharge Instructions: - Discharge Summary Sheet dr5 - Shortness of Breath, Adult dr5 Forms: - Medication Reconciliation Form dr5 - Patient Portal Instructions dr5 - Leadership Thank You Letter dr5 Signatures: Dispatcher [employer] Campbell Rangel MD MD cha Rhodes, Dustin, [employer]-C [employer]-Cdr5 Mark Finn RN RN ar8 Rahel Keita RN me1 Corrections: (The following items were deleted from the chart) 01/25 11:29 11:29 BASIC METABOLIC PANEL+C.LAB.BRZ ordered. EDMS EDMS 11:29 CBC+H.LAB.BRZ ordered. EDMS EDMS 11:29 PROBNP+C.LAB.BRZ ordered. EDMS EDMS 11:29 PROTIME (+INR)+COAG.LAB.BRZ ordered. EDMS EDMS 11:29 Troponin High Sensitivity+C.LAB.BRZ ordered. EDMS EDMS 11:29 CREATINE PHOSPHOKINASE+C.LAB.BRZ ordered. EDMS EDMS : 11:29 Chest Single View+RAD.RAD.BRZ ordered. EDMS EDMS 12:38 12:38 Chest For PE Angio+CT.RAD.BRZ ordered. EDMS EDMS
--- NOTE | 2025-01-25 14:20 | ER ---
Nurse's Notes [facility] Name: John Brownlee Age: 59 yrs Sex: Male : 1965 Arrival Date: 01/25/2025 Time: 11:11 Bed 6 Private MD: Diagnosis: Shortness of breath Presentation: 01/25 11:17 Chief complaint: Patient states: C/O SOB that began this morning. patient states that ar8 it feels like he can't catch his breath. O2 sat 100% RA, no respiratory distress noted during triage. Coronavirus screen: At this time, the client does not indicate any symptoms associated with coronavirus-19. Ebola Screen: No symptoms or risks identified at this time. Initial Sepsis Screen: Does the patient meet any 2 criteria? No. Patient's initial sepsis screen is negative. Does the patient have a suspected source of infection? No. Patient's initial sepsis screen is negative. Risk Assessment: Do you want to hurt yourself or someone else? Patient reports no desire to harm self or others. Onset of symptoms was January 25, 2025. 11:17 Method Of Arrival: EMS: [facility] ar8 11:17 Acuity: TERESO 3 ar8 Triage Assessment: 11:19 General: Appears in no apparent distress. Behavior is calm, cooperative. Pain: Denies ar8 pain. Neuro: No deficits noted. Cardiovascular: Patient's skin is warm and dry. Respiratory: Reports shortness of breath air hunger since this morning Airway is patent Respiratory effort is even, unlabored, Respiratory pattern is regular, symmetrical, Breath sounds are clear bilaterally. Onset: The symptoms/episode began/occurred this morning, the patient has mild shortness of breath. GI: No signs and/or symptoms were reported involving the gastrointestinal system. : No signs and/or symptoms were reported regarding the genitourinary system. Derm: No signs and/or symptoms reported regarding the dermatologic system. Historical: - Allergies: 11:19 No Known Allergies; ar8 - Home Meds: 11:19 None [Active]; ar8 - PMHx: 11:19 Arthritis; Gout; ar8 - PSHx: 11:19 None; ar8 - Immunization history:: Adult Immunizations up to date. - Infectious Disease History:: Denies. - Social history:: Smoking status: Patient reports the use of cigarette tobacco products, smokes one-half pack cigarettes per day. Screenin:20 [facility] ED Fall Risk Assessment (Adult) History of falling in the last 3 months, ar8 including since admission No falls in past 3 months (0 pts) Confusion or Disorientation No (0 pts) Intoxicated or Sedated No (0 pts) Impaired Gait No (0 pts) Mobility Assist Device Used No (0 pt) Altered Elimination No (0 pt) Score/Fall Risk Level 0 - 2 = Low Risk Oriented to surroundings, Maintained a safe environment. Abuse screen: Denies threats or abuse. Abuse screen: Denies threats or abuse. Nutritional screening: No deficits noted. Nutritional screening: No deficits noted. Tuberculosis screening: No symptoms or risk factors identified. Assessment: 11:56 Reassessment: See triage assessment. ar8 12:30 General: Appears in no apparent distress. well groomed, well developed, well nourished, me1 Behavior is calm, cooperative, appropriate for age, Reports C/O SOB that began this morning. patient states that it feels like he can't catch his breath. O2 sat 100% RA, no respiratory distress noted during triage. Pain: Denies pain. Neuro: Level of Consciousness is awake, alert, obeys commands, Oriented to person, place, time, situation, Appropriate for age. Cardiovascular: Patient's skin is warm and dry. Cardiovascular: Rhythm is regular. Respiratory: Airway is patent Trachea midline Respiratory effort is even, unlabored, Respiratory pattern is regular, symmetrical. Respiratory: Reports shortness of breath at rest on exertion. GI: No signs and/or symptoms were reported involving the gastrointestinal system. : No signs and/or symptoms were reported regarding the genitourinary system. EENT: No signs and/or symptoms were reported regarding the EENT system. Derm: Skin is intact, is healthy with good turgor, Skin is normal. Musculoskeletal: Circulation, motion, and sensation intact. Range of motion: intact in all extremities. Vital Signs: 11:17 BP 133 / 85; Pulse 59; Resp 17 S; Temp 98.3(O); Pulse Ox 99% on R/A; Weight 95.25 kg; ar8 Height 5 ft. 10 in. ; Pain 0/10; 11:45 BP 137 / 93; Pulse 65; Resp 18; Pulse Ox 97% on R/A; ar8 12:15 BP 144 / 96; Pulse 63; Resp 17; Pulse Ox 97% ; me1 13:00 BP 147 / 88; Pulse 62; Resp 16; Pulse Ox 95% ; me1 14:00 BP 139 / 87; Pulse 59; Resp 12; Temp 98.3; Pulse Ox 95% ; me1 11:17 Body Mass Index 30.13 (95.25 kg, 177.8 cm) ar8 11:17 Pain Scale: Adult ar8 ED Course: 11:17 Patient arrived in ED. ar8 11:19 Triage completed. ar8 11:19 Arm band placed on right wrist. ar8 11:20 [facility] Fonsec[facility]5 11:20 Campbell oBo MD is Attending Physician. dr5 11:20 Bed in low position. Call light in reach. Side rails up X2. Provided Education on: plan ar8 of care. Client placed on continuous cardiac and pulse oximetry monitoring. NIBP monitoring applied. 11:20 No provider procedures requiring assistance completed. Maintain EMS IV. Dressing ar8 intact. Good blood return noted. Site clean \T\ dry. Gauge \T\ site: 20G L AC. Flushed with 10 mL NS. 11:26 Nurse Practitioner and/or Physician Studio Director to see patient. ar8 11:33 Mark Finn, RN is Primary Nurse. ar8 11:47 Basic Metabolic Panel Sent. ar8 11:47 CBC with Diff Sent. ar8 11:47 NT PRO-BNP Sent. ar8 11:47 PT-INR Sent. ar8 11:47 Troponin HS Sent. ar8 11:50 EKG done, by ED staff, reviewed by Missael BARRERA. ar8 12:18 XRAY Chest (1 view) In Process Unspecified. EDMS 12:52 CT Chest For PE Angio In Process Unspecified. EDMS 14:46 IV discontinued, intact, bleeding controlled, No redness/swelling at site. Pressure me1 dressing applied. Administered Medications: 11:47 Drug: NS 0.9% IV 1000 ml IV at 1000 ml once; to be given as a bolus over 60 minutes ar8 Route: IV; Rate: 1000 ml; Site: left antecubital; 14:27 Follow up: Response: No adverse reaction; IV Status: Completed infusion me1 Medication: 11:20 VIS not applicable for this client. ar8 Outcome: 14:20 Discharge ordered by . norris 14:46 Discharged to home ambulatory, me1 14:46 Condition: stable 14:46 Discharge instructions given to patient, Instructed on discharge instructions, follow up and referral plans. Demonstrated understanding of instructions, follow-up care, 14:46 Patient left the ED. me1 Signatures: Dispatcher [employer] Rahel Medina RN RN me1 Missael Fonseca, CHAIR AND COUCH MAKER-C CHAIR AND COUCH MAKER-Cdr5 Mark Finn RN RN ar8 Corrections: (The following items were deleted from the chart) 13:24 11:17 Chief complaint: Patient states: C/O SOB that began this morning. patient states me1 that it feels like he can't catch his breath. O2 sat 100% RA, no respiratory distress noted during triage ar8
[2025-01-25 16:48] VITALS: TEMP 98.3
[2025-01-25 17:01] VITALS: O2SAT 95
[2025-01-25 17:05] VITALS: BP 139/87
== END 2025-01-25 14:46 | disposition home or self-care (01) ==
LOC: ER 11:11
DX: R06.02 Shortness of breath (principal)
CPT/HCPCS: 36415; 71045; 71275; 80048; 82550; 83880; 84484; 85025; 85610; 93005; 96360; 96361; 99284; J7030; Q9967